=== PATIENT | male | born 1975 | race Hispanic/Latino ===

== ENCOUNTER 2025-05-01 12:05 | Outpatient (CLI) | payer OTHER, SELFPAY ==
--- NOTE | ~2025-05-01 | XR_ITS ---
Right Shoulder Technique: AP and axillary views were obtained. Clinical History: Pain Findings: No fracture or dislocation is seen. Osseous alignment is anatomic. The glenohumeral and acr omioclavicular joint spaces are preserved. Soft tissues are unremarkable. Impression: Unremarkable right shoulder radiographs. Reviewed, dictated and finalized at [facility]. Impression: Unremarkable right shoulder radiographs.
--- OUTSIDE RECORDS SUMMARY | 2025-05-01 12:13 | XMS_ITS | Encounter Summary ---
Author Organization [facility] Address [address] [place] [address] Phone Care Team Providers Care Interpreter Name Role Phone No, Physician Primary Care Provider [phone] Encounter Details Date Type Department Care Team (Late st Contact Info) Description 04/30/2025 Telephone [facility] Orthopaedic Surgery [address] [facility] Advanced Medicine 6th [place] [address] [place] [address] Teri Michelle MS Social History Tobacco Use Types Packs/Day Years Used Date Smoking Tobacco: Never AUDIT-C Answer Date Recorded Q1: How often do you have a drink containing alcohol? Never 11/23/2024 Q2: How many drinks containi ng alcohol do you have on a typical day when you are drinking? Patient does not drink Q3: How often do you have si x or more drinks on one occasion? Never 11/23/2024 Personal Safety Answer Date Recorded Have you ever been in or are you currently in a harmful physical or emotional relationship or is someone making you feel afraid or unsafe? 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 documented in this encounter Plan of Treatment Not on file documented as of this encounter Visit Diagnoses Not on filedocumented in this encounter Care Teams Interpreter Relationship Specialty Start Date End Date No, Physician PCP - General 11/10/24 documented as of this encounter
--- OUTSIDE RECORDS SUMMARY | 2025-05-01 12:13 | XMS_ITS | Encounter Summary ---
Author Organization [facility] Address [address] [place] [address] Phone Care Team Providers Care Wrapper Leaf Inspector Name Role Phone No, Physician Primary Care Provider Encounter Details Date Type Department Care Team (Late st Contact Info) Description 04/06/2025 Results Follow-Up [facility] Gastroenterology [address] [facility] Advanced Medicine 12th [place] [address] [place] [address] Justina Corbett B.A. 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 - 04/06/2025 2:14 PM CDT I called the patient regarding the negative FIT colon screening test results and sent a letter to the patient documented in this encounter Plan of Treatment Not on file documented as of this encounter Visit Diagnoses Not on filedocumented in this encounter Care Teams Wrapper Leaf Inspector Relationship Specialty Start Date End Date No, Physician PCP - General 11/10/24 documented as of this encounter
--- OUTSIDE RECORDS SUMMARY | 2025-05-01 12:13 | XMS_ITS | Referral Summary ---
Author Organization [facility] Address [address] [place] [address] Care Team Providers Care Client Experience Manager Name Role Phone No, Physician Primary Care Provider [phone] Encounters Date Type Department Care Team Description 04/30/2025 Telephone [facility] Orthopaedic Surgery [facility] 6th [place] [address] [place] [phone] Teri Michelle MS 04/24/2025 3:00 PM CDT - 04/24/2025 11:59 PM CDT Hospital Encounter [facility] [address] [place] [address] [place] fracture of fibula, left, closed, initial encounter Discharge Disposition: Discharge to home or self care 04/24/2025 3:30 PM CDT Office Visit [facility] Orthopaedic Surgery [address] [facility] 6th [place] [address] [place] [address] New Barron MD Maisonneuve fracture of fibula, left, closed, initial encounter (Primary Dx) 04/06/2025 Results Follow-Up [facility] Gastroenterology [address] [facility] 12th [place] [address] [place] [address] Justina Corbett B.A. FIT occult blood, fecal 04/05/2025 Telephone [facility] Orthopaedic Surgery [address] [facility] Advanced Medicine 6th [place] [address] [place] [address] Teri Michelle MS 04/05/2025 Telephone [facility] Orthopaedic Surgery [address] [facility] [address] [place] [address] Ingrid Lozada BS 03/21/2025 12:11 PM CDT - 03/21/2025 11:59 PM CDT Hospital Encounter [address] [place] [address] Discharge Disposition: Discharge to home or self care 03/15/2025 4:53 PM CDT - 03/15/2025 11:59 PM CDT Hospital Encounter [address] [address] Discharge Disposition: Discharge to home or self care 02/21/2025 Orders Only [facility] Orthopaedic Surgery [facility] Advanced [facility] 6th [place] [address] [place] [address] New Barron MD Maisonneuve fracture of fibula, left, closed, initial encounter (Primary Dx) 02/20/2025 Telephone [facility] Orthopaedic Surgery [address] [facility] [address] [place] [address] Ingrid Lozada, DWIGHT WORK COMP INTAKE FORM 02/20/2025 3:00 PM CDT Office Visit [facility] Orthopaedic Surgery [address] [place] [address] Advanced [facility] 6th [place] [address] [place] [address] New Barron MD Maisonneuve fracture of fibula, left, closed, initial encounter (Primary Dx) 02/20/2025 3:02 PM CDT - 02/20/2025 11:59 PM CDT Hospital Encounter [facility] [address] [place] [address] [place] fracture of fibula, left, closed, initial encounter Discharge Disposition: Discharge to home or self care from Last 3 Months Allergies No known active allergies Medications HYDROcodone-slick taminophen (NORCO) 5-325 mg per tabletIndicatio ns:Pain Take 1 tablet by mouth every 4 (four) hours as needed for pain for up to 30 doses 30 tablet [address] (NexIUM) 40 mg capsule Take 1 capsule (40 mg total) by mouth daily before breakfast To protect stomach while taking aspirin. 14 capsule 5 11/23/19 26 Active meloxicam (MOBIC) 15 mg tablet Take 1 tablet (15 mg total) by mouth daily 5 Active cholecalciferol (VITAMIN D-3) 50,000 unit capsule Take 1 capsule every week by oral route for 30 days. 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 Gender Identity Not on file Sexual Orientation Not on file Last Filed Vital Signs Vital Sign Reading Time Taken Comments Blood Pressure 107/70 11/23/2024 7:20 PM CELL GENETICIST Pulse 61 11/23/2024 7:20 PM CELL GENETICIST Temperature 36.4 C (97.5 F) 11/23/2024 7:20 PM CELL GENETICIST Respiratory Rate 14 11/23/2024 7:20 PM CELL GENETICIST Oxygen Saturation 92% 11/23/2024 7:20 PM CELL GENETICIST Inhaled Oxygen Concentration - - Weight 93.4 kg (206 lb) 11/23/2024 11:45 AM CELL GENETICIST Height 156 cm (5' 1.42) 11/23/2024 11:24 AM CELL GENETICIST Body Mass Index 38.4 11/23/2024 11:24 AM CELL GENETICIST Plan of Treatment Not on file Medical Devices Implanted Type Area Inlayer Device Identifier Shelf Expiration Date Model / Serial / Lot [employer] Low Profile Screws 3.5mm 55mm Self Drill Solid Modular Ankle Ar-8835-55 - [id number] Implanted:Qty: 1 on 11/23/2024 at [facility] Left: Ankle [employer] AR-8835-55 / / [employer] Plate Bone Tightrope Stainless Steel 2 Hole Syndesmosis Ar-8958-01 - [id number] Implanted:Qty: 1 on 11/23/2024 at [facility] Left: Ankle [employer] AR-8958-01 / / [employer] Screw Bone Cortical Solid Full Thread Non Locking 3.5x52mm Ss Ar-8835-52 - [id number] Implanted:Qty: 1 on 11/23/2024 at [facility] Left: Ankle [employer] AR-8835-52 / / Procedures Procedure Name Priority Date/Time Associated Diagnosis Comments XR ANKLE LEFT 3 OR MORE VIEWS Routine 04/24/2025 3:57 PM CDT Maisonneuve fracture of fibula, left, closed, initial encounter FIT OCCULT BLOOD, FECAL Routine 03/21/2025 12:00 PM CDT PSA SCREEN Routine 03/15/2025 4:53 PM CDT XR ANKLE LEFT 3 OR MORE VIEWS Schedule Routine, Read Routine (OP Routine) 02/20/2025 3:23 PM CDT Maisonneuve fracture of fibula, left, closed, initial encounter from Last 3 Months Results * XR Ankle Left 3 or More Views (04/24/2025 3:57 PM CDT) Anatomical Region Laterality Modality Lower Extremities, Ankle Left Compute d Radiography 04/24/2025 4:44 PM CDT Impressions 04/25/2025 11:46 AM CDT 1. Unchanged left ankle Maisonneuve injury with reduced and internally fixated distal tibiofibular syndesmosis. Dictated by: Owen Cuellar MD The radiology attending physician has personally reviewed this study, and had reviewed and/or edited this written report and agrees with it. Electronically signed by: Abraham Galloway M.D. Narrative 04/25/2025 11:46 AM CDT EXAMINATION: XR ANKLE LEFT 3 OR MORE VIEWS HISTORY: Ankle injury FINDINGS: 3 radiographs of the left ankle are submitted for interpretation, comparison is made to radiographs from 02/20/2025. Unchanged syndesmotic fixation with lateral plate and 2 transsyndesmotic screws. Hardware is intact. No acute fracture. Ankle mortise is intact. Alignment is normal. Distal Achilles enthesophyte. Small plantar heel spur. Disuse osteopenia. Procedure Note Abraham Galloway MD - 04/25/2025 EXAMINATION: XR ANKLE LEFT 3 OR MORE VIEWS HISTORY: Ankle injury FINDINGS: 3 radiographs of the left ankle are submitted for interpretation, comparison is made to radiographs from 02/20/2025. Unchanged syndesmotic fixation with lateral plate and 2 transsyndesmotic screws. Hardware is intact. No acute fracture. Ankle mortise is intact. Alignment is normal. Distal Achilles enthesophyte. Small plantar heel spur. Disuse osteopenia. IMPRESSION: 1. Unchanged left ankle Maisonneuve injury with reduced and internally fixated distal tibiofibular syndesmosis. Dictated by: Owen Cuellar MD The radiology attending physician has personally reviewed this study, and had reviewed and/or edited this written report and agrees with it. Electronically signed by: Abraham Galloway M.D. New Barron MD IMG XR PROCEDURES Final R esult * FIT occult blood, fecal (03/21/2025 12:00 PM CDT) FIT occult blood, fecal Negative Negative Comment: This test is performed using the OC-Light S FIT test. The OC-Light S FIT test is an in vitro diagnostic device, a qualitative test designed for the immunochemical detection of human hemoglobin (hHb) in stool specimens. The performance characteristics of this test have been determined by [facility]. Current interpretive data was last revised on 2021 Stool 03/21/2025 12:0 0 PM CDT 03/21/2025 2:03 PM CDT us Bebo Linder MD LAB BODY FLUIDS AND STOOLS OR DERABLES Final Result [facility] [address] Department [place] [address] * PSA screen (03/15/2025 4:53 PM CDT) PSA-Total 0.36 <=3.90 ng/mL Comment: Interpretive Data AGE SEX REFERENCE INTERVAL 0 minutes-150 years Female None 0 minutes-49 years Male None 50-59 years Male 0-3.90 60-69 years Male 0-5.40 70-79 years Male 0-6.20 80-150 years Male 0-6.20 The Jillian PSA Total assay procedure was used. Results from different manufacturers or methods may not be comparable. Serial testing should be performed using the same method. Current interpretive data last revised 22. Blood 03/15/2025 4:53 PM CDT 03/15/2025 5:01 PM CDT us Mathew Ling MD LAB BLOOD ORDERABLES Final Resul t [facility] One [facility] Department [place] [address] * XR Ankle Left 3 or More Views (02/20/2025 3:23 PM CDT) Anatomical Region Laterality Modality Lower Extremities, Ankle Left Compute d Radiography 02/20/2025 3:59 PM CDT Impressions 02/20/2025 4:27 PM CDT 1. Unchanged syndesmotic fixation of the left ankle. Dictated by: Jeanmarie Schmitz M.D. The radiology attending physician has personally reviewed this study, and had reviewed and/or edited this written report and agrees with it. Electronically signed by: Jarvis Strickland D.O. Narrative 02/20/2025 4:27 PM CDT EXAMINATION: XR ANKLE LEFT 3 OR MORE VIEWS HISTORY: Fibular fracture. FINDINGS: 3 radiographs of the left ankle are submitted for interpretation with comparison made to 01/23/2025. There is disuse osteopenia. There is syndesmotic fixation with lateral plate and screw construct. The instrumentation appears intact. No periprosthetic osteolysis or fracture. No new acute fracture. The talar dome is intact. Mild soft tissue swelling around the ankle. Achilles tendon enthesophyte. Plantar calcaneal bone spur. Procedure Note Jarvis Strickland DO - 02/20/2025 EXAMINATION: XR ANKLE LEFT 3 OR MORE VIEWS HISTORY: Fibular fracture. FINDINGS: 3 radiographs of the left ankle are submitted for interpretation with comparison made to 01/23/2025. There is disuse osteopenia. There is syndesmotic fixation with lateral plate and screw construct. The instrumentation appears intact. No periprosthetic osteolysis or fracture. No new acute fracture. The talar dome is intact. Mild soft tissue swelling around the ankle. Achilles tendon enthesophyte. Plantar calcaneal bone spur. IMPRESSION: 1. Unchanged syndesmotic fixation of the left ankle. Dictated by: Jeanmarie Schmitz M.D. The radiology attending physician has personally reviewed this study, and had reviewed and/or edited this written report and agrees with it. Electronically signed by: Jarvis Strickland D.O. New Barron MD IMG XR PROCEDURES Final R esult from Last 3 Months Insurance [facility] Address: [address] [place] [address] [facility] [facility] H[facility]/PPO Address: [place] [address] [facility] INSURANCE WORKERS COMPENSATION GENERIC COMPENSATION Care Teams Client Experience Manager Relationship Specialty Start Date End Date No, Physician PCP - General 11/10/24
--- OUTSIDE RECORDS SUMMARY | 2025-05-01 12:13 | XMS_ITS | Clinical Summary ---
Author Organization [facility] Address [address] [place] [address] Care Team Providers Care Photographic Hand Developer Name Role Phone No, Physician Primary Care Provider [phone] Allergies No known active allergies Medications HYDROcodone-slick [...] fibu la, left, closed, initial encounter 11/22/2024 Encounters Date Type Department Care Team Description 04/30/2025 Telephone [facility] Orthopaedic Surgery [address] [facility] 6th [place] [address] [place] [address] Teri Michelle, MS 04/24/2025 3:30 PM CDT Office Visit [facility] Orthopaedic Surgery [address] [facility] Advanced [facility] 6th [place] [address] [place] [address] New Barron MD Maisonneuve fracture of fibula, left, closed, initial encounter (Primary Dx) 04/24/2025 3:00 PM CDT - 04/24/2025 11:59 PM CDT Hospital Encounter [facility] [address] [place] [address] [place] fracture of fibula, left, closed, initial encounter Discharge Disposition: Discharge to home or self care 04/06/2025 Results Follow-Up [facility] Gastroenterology [facility] 12th [place] [address] [place] [address] Justina Corbett B.A. FIT occult blood, fecal 04/05/2025 Telephone [facility] Orthopaedic Surgery [address] [facility] 6th [place] [address] [place] [address] Teri Michelle, MS 04/05/2025 Telephone [facility] Orthopaedic Surgery [address] [facility] [address] [place] [address] Ingrid Lozada BS 03/21/2025 12:11 PM CDT - 03/21/2025 11:59 PM CDT Hospital Encounter [address] [place] [phone] Discharge Disposition: Discharge to home or self care 03/15/2025 4:53 PM CDT - 03/15/2025 11:59 PM CDT Hospital Encounter [address] [address] Discharge Disposition: Discharge to home or self care 02/21/2025 Orders Only [facility] Orthopaedic Surgery [address] [place] [address] 6th [place] [address] [place] [address] New Barron MD Maisonneuve fracture of fibula, left, closed, initial encounter (Primary Dx) 02/20/2025 3:02 PM CDT - 02/20/2025 11:59 PM CDT Hospital Encounter [facility] ([facility]) [address] [place] [address] Kirsten fracture of fibula, left, closed, initial encounter Discharge Disposition: Discharge to home or self care 02/20/2025 3:00 PM CDT Office Visit [facility] Orthopaedic Surgery [address] [facility] Advanced Medicine 6th [place] [address] [place] [address] New Barron MD Kirsten fracture of fibula, left, closed, initial encounter (Primary Dx) 02/20/2025 Telephone [facility] Orthopaedic Surgery [address] [facility] [address] [place] [address] Ingrid Lozada BS WORK COMP INTAKE FORM from Last 3 Months Immunizations Immunization Administration Dates Next Due Tdap [...] on file Legal Sex Male 1:13 PM OIL INSPECTOR Gender Identity Not on file Sexual Orientation Not on file Obstetrics History Last Filed Vital Signs Vital Sign Reading Time Taken Comments Blood Pressure 107/70 11/23/2024 7:20 PM OIL INSPECTOR Pulse 61 11/23/2024 7:20 PM OIL INSPECTOR Temperature 36.4 C (97.5 F) 11/23/2024 7:20 PM OIL INSPECTOR Respiratory Rate 14 11/23/2024 7:20 PM OIL INSPECTOR Oxygen Saturation 92% 11/23/2024 7:20 PM OIL INSPECTOR Inhaled Oxygen Concentration - - Weight 93.4 kg (206 lb) 11/23/2024 11:45 AM OIL INSPECTOR Height 156 cm (5' 1.42) 11/23/2024 11:24 AM OIL INSPECTOR Body Mass Index 38.4 11/23/2024 11:24 AM OIL INSPECTOR Plan of Treatment Health Maintenance Due Date Last Done Comments Colon Cancer Screening-Colonoscopy 1973 Depression Screening 1973 Hepatitis C Screening 1973 Hepatitis B Screening 1991 Regular Well Visit/Exam 18-64 1991 Zoster Vaccine (1 of 2) 2023 Covid-19 Vaccine (2 - 2023-2 5 season) 2024 01/24/2021 Influenza Vaccine (#1) 2025 , 08/14/2019 Prostate Cancer Screening-PSA 03/15/2027 03/15/2025 DTaP/Tdap/Td Vaccine (3 - Td or Tdap) 05/02/2029 05/02/2019, 02/20/2010 Pneumococcal vaccine <65 Aged Out No longer eligible based on patient's age to complete this topic Medical Devices Implanted Type Area Mingler Operator Device Identifier Shelf Expiration Date Model / Serial / Lot [employer] Low Profile Screws 3.5mm 55mm Self Drill Solid Modular Ankle Ar-8835-55 - [id number] Implanted:Qty: 1 on 11/23/2024 at [facility] Left: Ankle [employer] AR-8835-55 / / [employer] Plate Bone Tightrope Stainless Steel 2 Hole Syndesmosis Ar-8958-01 - [id number] Implanted:Qty: 1 on 11/23/2024 at [facility] Left: Ankle [employer] AR-8958-01 / / [employer] Screw Bone Cortical Solid Full Thread Non Locking 3.5x52mm Ss Ar-8835-52 - [id number] Implanted:Qty: 1 on 11/23/2024 at [facility] Left: Ankle [employer] AR-8835-52 / / [...] it. Electronically signed by: Abraham Galloway M.D. us New Barron MD IMG XR PROCEDURES Final [...] of this test have been determined by [facility]. Current interpretive data was last revised on 2021 Stool 03/21/2025 12:0 0 PM CDT 03/21/2025 2:03 PM CDT us Bebo Linder MD LAB BODY FLUIDS AND STOOLS OR DERABLES Final Result [facility] [address] Department [place] [address] * PSA screen (03/15/2025 4:53 PM CDT) [...] LAB BLOOD ORDERABLES Final Resul t [facility] [address] [facility] Department [place] [address] * XR Ankle Left 3 or More [...] it. Electronically signed by: Jarvis Strickland D.O. us New Barron MD IMG XR PROCEDURES Final R esult from Last 3 Months Insurance CHOICE PLUS CHOICE PLUS [facility] INSURANCE WORKERS COMPENSATION GENERIC COMPENSATION Care Teams Photographic Hand Developer Relationship Specialty Start Date End Date No, Physician PCP - General 11/10/24
--- OUTSIDE RECORDS SUMMARY | 2025-05-01 12:13 | XMS_ITS | Data Portability ---
Author Organization [facility] Address [address] [place] [address] Assessment No assessment recorded. Plan of Treatment Reminders Order Date Submit Date Provider Last Modified By Organization Details Last Modified Time Details Appointments ANY 15 2024 02:45P M SYED REYES PA-C Not available Not available Not available Lab CBC w/ auto diff 2024 025 [facility], [address], [place], [address], 01/18/2025 11:15:06 lipid panel, serum 2024 025 [facility], [address], [place], [address], 01/18/2025 11:14:58 CMP, serum or plasma 2024 025 [facility], [address], [place], [address], 01/18/2025 11:14:59 HbA1c (hemoglob in A1c), blood 2024 025 [facility], [address], [place], [address], 01/18/2025 11:15:03 vitamin D, 25-hydrox y, total, serum 2024 025 [facility], [address], [place], [address], 01/18/2025 11:15:07 TSH, ultra-sen sitive, serum 2024 025 [facility], [address], [place], [address], 01/18/2025 11:15:01 HIV 1 + 2, meaningfu l use set 2024 025 [facility], [address], [place], [address], 01/18/2025 11:15:09 Referral None recorded. Procedures None recorded. Surgeries None recorded. Imaging XR, shoulder, 2 or more view 2024 025 [facility] (Imaging), [address] [place] [address] [address], [place], [address], 04/18/2025 09:15:11 Medication Orders meloxicam 15 mg tablet 2024 025 [facility], [address] [place] [address], [address], 04/17/2025 16:38:54 meloxicam 15 mg tablet 2024 025 [facility], [address] [place] [address], [address], 01/16/2025 14:49:22 Patient TargetsNo targets recorded. Patient Instructions Encounter Date Encounter Id Patient Instructions Last Modified By Organization Details Last Modified Time 01/16/2025 [id number] A healthy lifestyle: care instructions [email or web address] Not available 01/16/2025 14:49:17 medical record request* [email or web address] Not available 01/17/2025 09:08:41 04/17/2025 [id number] A healthy lifestyle: care instructions [email or web address] Not available 04/17/2025 16:38:49 Reason for Referral None Reported. Results Created Date Observation Date Name Description Value Unit Range Abnormal Flag Note LastModifiedBy Organization Detail LastModifiedTime 01/18/20 25 01/18/2025 LIPID PANEL cholesterol, total 176 mg/dL 100-19 9 Not Available [facility] ([facility]) [address] [place], [address], 01/18/2025 11:14:58 01/18/20 25 01/18/2025 LIPID PANEL triglyceride s 86 mg/dL 0-149 Not Available [facility] ([facility]) [address] [place], [address], 01/18/2025 11:14:58 01/18/20 25 01/18/2025 LIPID PANEL HDL cholesterol 39 mg/dL >39 below low normal Not Available [facility] ([facility]) [address] [place], [address], 01/18/2025 11:14:58 01/18/20 25 01/18/2025 LIPID PANEL VLDL cholesterol katty 16 mg/dL 5-40 Not Available [facility] ([facility]) [address] [place], [address], 01/18/2025 11:14:58 01/18/20 25 01/18/2025 LIPID PANEL LDL chol calc ([facility]) 121 mg/dL 0-99 above high normal Not Available [facility] ([facility]) [address] [place], [address], 01/18/2025 11:14:58 01/18/20 25 01/18/2025 COMP. METAB OLIC PANEL (14) glucose 86 mg/dL 70-99 Not Available [facility] ([facility]) [address] [place], [address], 01/18/2025 11:14:59 01/18/20 25 01/18/2025 COMP. METAB OLIC PANEL (14) BUN 15 mg/dL 6-24 Not Available [facility] ([facility]) [address] [place], [address], 01/18/2025 11:14:59 01/18/20 25 01/18/2025 COMP. METAB OLIC PANEL (14) creatinine 0.81 mg/dL 0.76-1 .27 Not Available [facility] ([facility]) [address] [facility], [place], [address], 01/18/2025 11:14:59 01/18/20 25 01/18/2025 COMP. METAB OLIC PANEL (14) eGFR 107 mL/mi n/1.7 3 >59 Not Available [facility] ([facility]) [address] [facility], [place], [address], 01/18/2025 11:14:59 01/18/20 25 01/18/2025 COMP. METAB OLIC PANEL (14) BUN/creatini ne ratio 19 9-20 Not Available [facility] ([facility]) [address] [facility], [place], [address], 01/18/2025 11:14:59 01/18/20 25 01/18/2025 COMP. METAB OLIC PANEL (14) sodium 142 mmol/ L 134-14 4 Not Available [facility] ([facility]) [address] [place], [address], 01/18/2025 11:14:59 01/18/20 25 01/18/2025 COMP. METAB OLIC PANEL (14) potassium 4.1 mmol/ L 3.5-5. 2 Not Available [facility] ([facility]) [address] [place], [address], 01/18/2025 11:14:59 01/18/20 25 01/18/2025 COMP. METAB OLIC PANEL (14) chloride 108 mmol/ L 96-106 above high normal Not Available [facility] ([facility]) [address] [facility], [place], [address], 01/18/2025 11:14:59 01/18/20 25 01/18/2025 COMP. METAB OLIC PANEL (14) carbon dioxide, total 20 mmol/ L 20-29 Not Available [facility] ([facility]) [address] [facility] [place] [place], [address], 01/18/2025 11:14:59 01/18/20 25 01/18/2025 COMP. METAB OLIC PANEL (14) calcium 8.9 mg/dL 8.7-10 .2 Not Available [facility] ([facility]) [address] [facility], [place], [address], 01/18/2025 11:14:59 01/18/20 25 01/18/2025 COMP. METAB OLIC PANEL (14) protein, total 7.0 g/dL 6.0-8. 5 Not Available [facility] ([facility]) [address] [facility], [place], [address], 01/18/2025 11:14:59 01/18/20 25 01/18/2025 COMP. METAB OLIC PANEL (14) albumin 4.2 g/dL 3.8-4. 9 Not Available [facility] ([facility]) [address] [facility] [place] [place], [address], 01/18/2025 11:14:59 01/18/20 25 01/18/2025 COMP. METAB OLIC PANEL (14) globulin, total 2.8 g/dL 1.5-4. 5 Not Available [facility] ([facility]) [address] [facility] [place], [address], 01/18/2025 11:14:59 01/18/20 25 01/18/2025 COMP. METAB OLIC PANEL (14) bilirubin, total 0.5 mg/dL 0.0-1. 2 Not Available [facility] ([facility]) [address] [facility], [place], [address], 01/18/2025 11:14:59 01/18/20 25 01/18/2025 COMP. METAB OLIC PANEL (14) alkaline phosphatase 136 IU/L 44-121 above high normal Not Available [facility] ([facility]) [address] [place], [address], 01/18/2025 11:14:59 01/18/20 25 01/18/2025 COMP. METAB OLIC PANEL (14) AST (SGOT) 15 IU/L 0-40 Not Available [facility] ([facility]) [address] [place], [address], 01/18/2025 11:14:59 01/18/20 25 01/18/2025 COMP. METAB OLIC PANEL (14) ALT (SGPT) 14 IU/L 0-44 Not Available [facility] ([facility]) [address] [place], [address], 01/18/2025 11:14:59 01/18/20 25 01/18/2025 TSH RFX ON ABNOR MAL TO FREE T4 TSH 1.390 uIU/m L 0.450- 4.500 Not Available [facility] ([facility]) [address] [place], [address], 01/18/2025 11:15:01 01/18/20 25 01/18/2025 HEMOG LOBIN A1C hemoglobin A1C 5.7 % 4.8-5. 6 above high normal Predi abete s: 5.7 - 6.4 Diabe taryn: >6.4 Glyce tyler contr ol for adult s with diabe taryn: <7.0 Not Available [facility] ([facility]) [address] [place], [address], 01/18/2025 11:15:03 01/18/20 25 01/18/2025 CBC WITH DIFFE RENTI AL/PL ATELE T WBC 6.8 x10e3 /uL 3.4-10 .8 Not Available [facility] ([facility]) [address] [place], [address], 01/18/2025 11:15:05 01/18/20 25 01/18/2025 CBC WITH DIFFE RENTI AL/PL ATELE T RBC 5.17 x10e6 /uL 4.14-5 .80 Not Available [facility] ([facility]) [address] [facility], [place], [address], 01/18/2025 11:15:05 01/18/20 25 01/18/2025 CBC WITH DIFFE RENTI AL/PL ATELE T hemoglobin 14.4 g/dL 13.0-1 7.7 Not Available [facility] ([facility]) [address] [facility], [place], [address], 01/18/2025 11:15:05 01/18/20 25 01/18/2025 CBC WITH DIFFE RENTI AL/PL ATELE T hematocrit 44.3 % 37.5-5 1.0 Not Available [facility] ([facility]) [address] [facility], [place], [address], 01/18/2025 11:15:05 01/18/20 25 01/18/2025 CBC WITH DIFFE RENTI AL/PL ATELE T MCV 86 fL 79-97 Not Available [facility] ([facility]) [address] [place], [address], 01/18/2025 11:15:05 01/18/20 25 01/18/2025 CBC WITH DIFFE RENTI AL/PL ATELE T MCH 27.9 pg 26.6-3 3.0 Not Available [facility] ([facility]) [address] [place], [address], 01/18/2025 11:15:05 01/18/20 25 01/18/2025 CBC WITH DIFFE RENTI AL/PL ATELE T MCHC 32.5 g/dL 31.5-3 5.7 Not Available [facility] ([facility]) [address] [place], [address], 01/18/2025 11:15:05 01/18/20 25 01/18/2025 CBC WITH DIFFE RENTI AL/PL ATELE T RDW 13.9 % 11.6-1 5.4 Not Available [facility] ([facility]) [address] [facility], [place], [address], 01/18/2025 11:15:05 01/18/20 25 01/18/2025 CBC WITH DIFFE RENTI AL/PL ATELE T platelets 230 x10e3 /uL 150-45 0 Not Available [facility] ([facility]) [address] [facility], [place], [address], 01/18/2025 11:15:05 01/18/20 25 01/18/2025 CBC WITH DIFFE RENTI AL/PL ATELE T neutrophils 49 % notest ab. Not Available [facility] ([facility]) [address] [facility], [place], [address], 01/18/2025 11:15:05 01/18/20 25 01/18/2025 CBC WITH DIFFE RENTI AL/PL ATELE T lymphs 37 % notest ab. Not Available [facility] ([facility]) [address] [facility], [place], [address], 01/18/2025 11:15:05 01/18/20 25 01/18/2025 CBC WITH DIFFE RENTI AL/PL ATELE T monocytes 10 % notest ab. Not Available [facility] ([facility]) [address] [facility], [place], [address], 01/18/2025 11:15:05 01/18/20 25 01/18/2025 CBC WITH DIFFE RENTI AL/PL ATELE T eos 4 % notest ab. Not Available [facility] ([facility]) [address] [facility], [place], [address], 01/18/2025 11:15:05 01/18/20 25 01/18/2025 CBC WITH DIFFE RENTI AL/PL ATELE T basos 0 % notest ab. Not Available [facility] ([facility]) [address] [facility], [place], [address], 01/18/2025 11:15:05 01/18/20 25 01/18/2025 CBC WITH DIFFE RENTI AL/PL ATELE T neutrophils (absolute) 3.3 x10e3 /uL 1.4-7. 0 Not Available [facility] ([facility]) [address] [facility], [place], [address], 01/18/2025 11:15:05 01/18/20 25 01/18/2025 CBC WITH DIFFE RENTI AL/PL ATELE T lymphs (absolute) 2.5 x10e3 /uL 0.7-3. 1 Not Available [facility] ([facility]) [address] [facility], [place], [address], 01/18/2025 11:15:05 01/18/20 25 01/18/2025 CBC WITH DIFFE RENTI AL/PL ATELE T monocytes(ab solute) 0.7 x10e3 /uL 0.1-0. 9 Not Available [facility] ([facility]) [address] [facility], [place], [address], 01/18/2025 11:15:05 01/18/20 25 01/18/2025 CBC WITH DIFFE RENTI AL/PL ATELE T eos (absolute) 0.2 x10e3 /uL 0.0-0. 4 Not Available [facility] ([facility]) [address] [place], [address], 01/18/2025 11:15:05 01/18/20 25 01/18/2025 CBC WITH DIFFE RENTI AL/PL ATELE T baso (absolute) 0.0 x10e3 /uL 0.0-0. 2 Not Available [facility] ([facility]) [address] [place], [address], 01/18/2025 11:15:05 01/18/20 25 01/18/2025 CBC WITH DIFFE RENTI AL/PL ATELE T immature granulocytes 0 % notest ab. Not Available [facility] ([facility]) [address] [facility], [place], [address], 01/18/2025 11:15:05 01/18/20 25 01/18/2025 CBC WITH DIFFE RENTI AL/PL ATELE T immature grans (abs) 0.0 x10e3 /uL 0.0-0. 1 Not Available [facility] ([facility]) [address] [facility], [place], [address], 01/18/2025 11:15:05 01/18/20 25 01/18/2025 VITAM IN D, 25-HY DROXY vitamin D, 25-hydroxy 25.9 NG/mL 30.0-1 00.0 below low normal Vitam in D defic iency has been defin ed by the Insti tute of Medic ine and an Endoc rine Socie ty pract ice guide line as a level of serum 25-OH vitam in D less than 20 ng/mL (1,2) . The Endoc rine Socie ty went on to furth er defin e vitam in D insuf ficie ncy as a level betwe en 21 and 29 ng/mL (2). 1. IOM (Inst itute of Medic ine). 2009. Dieta ry refer ence intak es for calci um and D. Leonel fairchild [place]: [facility] . 2. Renuka chavez [place], Marzena fernandes [place], Dom off-F bridgette i FRANCIS, et al. Evalu ation , treat ment, and preve ntion of vitam in D defic iency : an Endoc rine Socie ty clini katty pract ice guide line. JCEM. 2010; 96(7) :1911 -30. Not Available [facility] ([facility]) [address] [facility], [place], [address], 01/18/2025 11:15:07 01/18/20 25 01/18/2025 HIV AB/P2 4 AG WITH REFLE X HIV Ab/P24 Ag screen NON REACTI VE nonrea ctive HIV-1 /HIV- 2 antib odies and HIV-1 p24 antig en were NOT detec liz. There is no labor atory evide nce of HIV infec tion. HIV Negat zoey Not Available [facility] ([facility]) [address] [facility], [place], [address], 01/18/2025 11:15:09 Result Notes None recorded. Problems Name Problem SNOMED Code Status Onset Date Resolution Date Notes Provider Name and Address Organization Details Recorded Time Prediabetes 329792417 Active 2024 SYED REYES PA-C Attn: Manuel tapia,[address] [facility], [place], [place], [address] [place] [address] 2, [facility] 17:25:22 Vitamin D deficiency 33146100 Active 2024 SYED REYES PA-C Attn: Manuel tapia,[address] [facility], [place], [place], [address] [place] [address] 2, [facility] 17:25:23 Hyperlipidemia 39843756 Active 2024 SYED REYES PA-C Attn: Manuel tapia,[address] [facility], [place], [place], [address] [place] [address] 2, [facility] 17:25:24 Problem Notes None recorded. Procedures Surgical History Date Name Laterality Status Provider Name and Address Organization Details Recorded Time 12/12/2024 leg repair completed Stephanie Pisano MA [facility] 01/16/2025 14:19:43 Imaging Results None recorded. Procedure Notes None recorded. Medical Equipment None Reported. Medications Name Sig Start Date Stop Date Status Note LastModified by Organization Details LastModified Time hydrocodone 5 mg-acetamino phen 325 mg tablet TAKE 1 TABLET BY MOUTH EVERY 4 (FOUR) HOURS NEEDED FOR PAIN FOR UP TO 30 DOSES 01/16 completed Not Available Not Available Not Available meloxicam 15 mg tablet Take 1 tablet every day by oral route for 30 days. 2024 active Not Available Not Available Not Avai lable aspirin 81 mg tablet,delay ed release TAKE 1 TABLET BY MOUTH 2 TIMES A DAY FOR 14 DAYS FOR BLOOD CLOT PREVENTI ON. TAKE WITH FOOD. 01/16 completed Not Available Not Available Not Available cholecalcife rol (vitamin D3) 1,250 mcg (50,000 unit) capsule TAKE 1 CAPSULE BY MOUTH ONCE A WEEK active Not Available Not Available No t Available Vitals Date Recorded Body height Body mass index (BMI) Body weight Body temperature Oxygen saturation Oxygen saturation in Arterial blood by Pulse oximetry Heart rate Systolic And Diastolic Provider Name and Address Organization Details Last Updated DateTime 165.1 cm 33.4 kg/m2 93638.0 7 g 98.6 [degF] 94 % 94 % 102 /min 122/68 mm[Hg] Stephanie Pisano MA [facility] 14:24:04 Date Recorded Body height Body mass index (BMI) Body weight Oxygen saturation Oxygen saturation in Arterial blood by Pulse oximetry Heart rate Body temperature Systolic And Diastolic Provider Name and Address Organization Details Last Updated DateTime 165.1 cm 35 kg/m2 27357.0 8 g 96 % 96 % 78 /min 98.4 [degF] 118/80 mm[Hg] Chantal Rausch MA [facility] 16:12:06 Social History Question Answer Notes LastModified by Organizat ion Details LastModified Time Tobacco Smoking Status Never Smoker Stephanie Pisano MA null, [facility] 01/16/2025 14:19:10 Are You Blind Or Do You Have Difficulty Seeing? No Information not available 01/16/2025 What Is Your Level Of Caffeine Consumption? Moderate Information not available 01/16/2025 Are You Deaf Or Do You Have Serious Difficulty Hearing? No Information not available 01/16/2025 What Type Of Diet Are You Following? REGULAR Information not available 01/16/2025 What Was The Date Of Your Most Recent Tobacco Screening? 04/17/2025 [email or web address] Information not available 04/17/2025 What Is Your Relationship Status? Information not available 01/16/2025 Do You Use Your Seat Belt Or Car Seat Routinely? Yes Information not available 01/16/2025 Sex: Male Functional Status Question Answer Note LastModified by Organizat ion Details LastModified Time Do you use any illicit or recreational drugs? No Information not available 01/16/2025 Do you or have you ever used any other forms of tobacco or nicotine? No Information not available 01/16/2025 What is your level of alcohol consumption? None Information not available 01/16/2025 Are you currently employed? Yes Information not available 01/16/2025 Are you able to care for yourself? 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 [id number] Information not available 01/16/2025 Family History Nothing Reported. Medical History No medical history recorded. Immunizations Vaccine Type Date Status Note Provider Nam e and Address Organization Details Recorded Time Tdap 0 completed Not Available [facility] 04/17/2025 15:58:48 MMR 1 completed Not Available [facility] 04/17/2025 15:58:48 varicella 1 completed Not Available [facility] 04/17/2025 15:58:48 Td (adult), 2 Lf tetanus toxoid, preservative free, adsorbed 9 completed Not Available [facility] 04/17/2025 15:58:48 Influenza, split virus, quadrivalent, preservative 9 completed Not Available [facility] 04/17/2025 15:58:48 Influenza, split virus, quadrivalent, PF 0 completed Not Available [facility] 04/17/2025 15:58:48 COVID-19 vaccine, vector-nr, rS-Ad26, PF, 0.5 mL 1 completed Not Available [facility] 04/17/2025 15:58:48 Past Encounters Encounter ID Performer Location Encounter Start Date Encounter Closed Date Diagnosis/Indication Diagnosis SNOMED-CT Code Diagnosis ICD10 Code Diagnosis Note [id number] Dawna Saldana MD [facility] (Adult Med) [address] [place] [phone] 01/16/2025 14:06:23 01/18/2025 13:22:16 Depression screening 044101194 Z13.31 PHQ9- Negative (# out of 27) Mental hea lth screening 925730781 Z13.39 GAD7- Negative ( # out of 21) Obesity 731462044 E66.81 1 BMI 33.4 Adult heal th examination 512068998 Z00.00 Routine labs today Injury of left ankle 785 0574034 7325826 S99.912A [facility] Pain of ri ght shoulder joint [id number] 9251215 M25.511 crepitus R shoulder, negative empty canStart meloxicam 15mg dailyNo other NSAIDS [id number] Dawna Saldana MD [facility] (Adult Med) [address] [place] [phone] 04/17/2025 15:55:32 04/18/2025 16:27:16 Pain of right shoulder joint 9235414716 7836715 M25.511 crepitus R shoulder, pain with internal rotationc/ w meloxicam 15mg dailyNo other NSAIDS Obese class II 267791098 1 07355 E66.812 BMI 35.0 Depression screening 171 790361 Z13.31 PHQ9- Negative (1 out of 27) Mental hea lth screening 295793181 Z13.30 GAD7- Negative (0 out of 21) Injury of left ankle 172 7180593 7754768 S99.912D finished PT yesterdayk eep f/u appt with Ortho on 04/23/25 Health Concerns Section Related Observation LastModified by Organization Detai ls LastModified Time None Recorded Concern Status LastModified by Organization Details LastModified Time None Recorded Advance Directives Directive None Recorded Payers Insurance Date Sequence Insurance Name Policy Number Policy Agee Covered Member ID Agee Member ID Guarantor Name 04/17/2025 1 [facility] [id number] [facility] [id number] [facility] 01/16/2025 2 *SELF PAY* En [facility] Notes Date Note Type Note Provider Name and Address Organization Details Recorded Time 01/16/2025 text/html 49 y/o M here to establish care. Pt is needing an adult health examination for general check up. Pt states he has not had a PCP in 2.5 years. He had a PCP in [facility] when he lived there but he does not remember the name or number. Pt had accident at work 11/07/24- torn ligaments on L ankle- had surgery 12/12/24 at [facility]. Pt is going to PT and is doing well. Pt is c/o R shoulder pain/popping. Denies injury. SYED REYES PA-C Attn: [employer] , [place], [address], [facility] 01/16/2025 14:51:04 04/17/2025 text/html 50 y/o M here for f/u R shoulder pain. Pt states pain has gotten better with meloxicam. States he still has some pain at times but it is not as bad as before.Pt states his ankle is better as well, finished therapy yesterday and has f/u appt with ortho next week. SYED REYES PA-C Attn: [employer],[address] , [place], [address], [facility] 04/17/2025 16:41:15
== END 2025-05-01 12:06 | disposition home or self-care (01) ==
PROVIDERS: PCP Physician Assistant Medical; Visit Provider Physician Assistant Medical
DX: M25.511 Pain in right shoulder (principal)
CPT/HCPCS: 73030